=== PATIENT | male | born 1935 | race Caucasian/White ===

== ENCOUNTER → 2016-11-20 | Outpatient (CLI) | payer OTHER ==
[~2016-11-20] MED LIST: ACETAMINOPHEN325 M1 PO; LISINOPRIL10 MG PO; MOBIC7.5 MG PO; SYNTHROID100 MCG PO; ZESTRIL5 MG PO
== END ==
LOC: RAD 02:23
DX: M25.551 Pain in right hip (principal); I10 Essential (primary) hypertension

== ENCOUNTER → 2017-12-07 | Outpatient (CLI) | payer OTHER | LOC: RAD 08:38 | DX: M47.896 Other spondylosis, lumbar region (principal); M48.061 Spinal stenosis, lumbar region without neurogenic claudication; G89.29 Other chronic pain; M17.0 Bilateral primary osteoarthritis of knee; I10 Essential (primary) hypertension ==

== ENCOUNTER → 2018-02-04 | Outpatient (CLI) | payer OTHER ==
--- NOTE | ~2018-02-04 | 2DMMODE ---
[facility] [place] [address] 2 D/M-MODE ECHOCARDIOGRAM Name: MARNIE DIA Room #: REG [facility]#: [id number] Admission: 02/04/18 Attend Phys: Marnie Kaye Discharge: Date of : 31 Date of Service: 02/04/18 1132 Report #: [id number] THIS REPORT FOR: //name// APPROVED REPORT Study performed: 02/04/2018 10:50:52 EXAM: Comprehensive 2D, Doppler, and color-flow Echocardiogram Patient Location: Out-Patient Status: routine BSA: 1.69 HR: 60 bpm BP: 159/86 mmHg Rhythm: Pacemaker Other Information Study Quality: Adequate Indications Pacemaker 2D Dimensions RVDd: 28.72 mm LVEF(%): 55.05 (>50%) IVSd: 11.00 (7-11mm) LVOT Diam: 20.46 (18-24mm) LVDd: 50.33 mm PWd: 11.00 (7-11mm) Ascending Ao: 36.11 (22-36mm) LVDs: 35.87 (25-40mm) Aortic Root: 38.04 mm Mccann's LVEF: 55.05 % Volumes Left Atrial Volume (Systole) Single Plane 4CH: 31.24 mL Single Plane 2CH: 37.86 mL LA ESV Index: 22.00 mL/m2 Aortic Valve AoV Peak Armando.: 1.14 m/s AO Peak Gr.: 5.19 mmHg LVOT Max P.63 mmHg LVOT Max V: 0.81 m/s BHAVESH Vmax: 2.34 cm2 Mitral Valve E/A Ratio: 0.6 MV Decel. Time: 286.79 ms [facility] [employer] [address] [place] [address] 2 D/M-MODE ECHOCARDIOGRAM Name: MARNIE DIA Room #: [facility]#: [id number] Admission: 02/04/18 Attend Phys: [facility] Discharge: Date of : 31 Date of Service: 02/04/18 1132 Report #: [id number] MV E Max Armando.: 0.56 m/s MV A Armando.: 0.88 m/s MV PHT: 83.17 ms IVRT: 101.50 ms Pulmonary Valve PV Peak Armando.: 1.08 m/s PV Peak Gr.: 4.67 mmHg Pulmonary Vein P Vein S: 0.32 m/s P Vein A: 0.25 m/s P Vein D: 0.39 m/s P Vein S/D Ratio: 0.82 Tricuspid Valve TR Peak Armando.: 2.47 m/s TR Peak Gr.: 24.31 mmHg Left Ventricle The left ventricle is normal size. There is normal left ventricular wall thickness. Left ventricular systolic function is low normal. Discordant septal motion probably from RV pacing LVEF is 50%. Mild diastolic dysfunction is present (impaired relaxation pattern). Right Ventricle The right ventricle is normal size. The right ventricular systolic function is normal. Pacemaker lead is present in the right ventricle. Atria The left atrium size is normal. The right atrium size is normal. Aortic Valve The aortic valve is normal in structure. Trace aortic regurgitation. There is no aortic valvular stenosis. Mitral Valve The mitral valve is normal in structure. Mild mitral regurgitation. Tricuspid Valve The tricuspid valve is normal in structure. Mild to moderate tricuspid regurgitation. Estimated PAP is 25mmHg plus the right atrial pressure. Pulmonic Valve [facility] [address] [place] [address] 2 D/M-MODE ECHOCARDIOGRAM Name: MARNIE DIA Room #: REG [facility]#: [id number] Admission: 02/04/18 Attend Phys: [facility] Discharge: Date of : 31 Date of Service: 02/04/18 1132 Report #: [id number] The pulmonary valve is normal in structure. Trace pulmonic regurgitation. Great Vessels Aortic root is borderline dilated. The ascending aorta is normal in size. IVC is not well visualized. Pericardium There is no pericardial effusion. <Conclusion> Technically limited study Left ventricular systolic function is low normal. Discordant septal motion probably from RV pacing LVEF is 50%. Mild diastolic dysfunction The aortic valve is normal in structure. Trace aortic regurgitation, no stenosis. The mitral valve is normal in structure. Mild mitral regurgitation. Mild to moderate tricuspid regurgitation. Estimated pulmonary artery pressure of 25mmHg plus the right atrial pressure. There is no pericardial effusion. <ELECTRONICALLY SIGNED> By: Jono Solano MD, FACC 02/04/18 1132 113 113 Jono Solano MD, FACC /INF
== END ==
LOC: CV 07:13
DX: I08.1 Rheumatic disorders of both mitral and tricuspid valves (principal); I10 Essential (primary) hypertension; Z95.0 Presence of cardiac pacemaker

== ENCOUNTER → 2018-02-05 | Outpatient (CLI) | payer OTHER | LOC: ULTRA 06:19 | DX: N28.1 Cyst of kidney, acquired (principal); I70.90 Unspecified atherosclerosis; Z90.49 Acquired absence of other specified parts of digestive tract ==

== ENCOUNTER → 2019-10-11 | Outpatient (CLI) | payer OTHER ==
[~2019-10-11] VITALS: Ht 160 cm; Wt 63.5 kg
[~2019-10-11] MED LIST changes: +FUROSEMIDE 20 M20 MG PO; +NORVASC 2.5 MG2.5 M1 PO; +POTASSIUM20 PO
[2019-10-11 09:37] VITALS: BP 137/77
--- NOTE | 2019-10-11 09:58 | NUR ---
Pain Clinic Assessment: 1. History of Osteoarthritis: KNEES History of Rheumatoid Arthritis: 2. Height: 5 ft. 3 in. 160.0 cm. Weight: 140.0 lb. oz. 63.504 kg. Patient's BMI: 24.8 3. Vital Signs: BP: 137/77 Pulse: 70 Resp: 14 Temp: 02 Sat: 95 ECG Mon: 4. Pain Intensity: 7 5. Fall Risk: Dizziness: N Needs help standing or walking: Y Fallen in the last 3 months: N Fall risk comments: 6. Patient on Blood Thinner: None 7. History of Hypertension: Y 8. Opioid Therapy greater than 6 weeks: N Opiate Contract Signed: 9. Risk Assessment Tool Provided: 0-LOW RISK 10. Functional Assessment Tool: 11. Recreational Drug Use: Never Drug Type: Tobacco Use: Never Smoker Tobacco Type: Amount or Packs/day: How Many Years: Alcohol Use: No Frequency: Quant:
--- NOTE | 2019-10-18 07:45 | HPC ---
[facility] [place] [address] PAIN MANAGEMENT CONSULTATION Name: DIAYANET Room #: REG [facility]#: [id number] Admission: 10/11/19 Attend Phys: Sai Watt DO Discharge: Date of : 31 Report #: [id number] THIS REPORT FOR: cc: Reggie Anne MD, Mark A. MD Johnson, James E. DO ~ THIS REPORT FOR: //name// DATE OF SERVICE: 10/11/2019 CHIEF COMPLAINT: Low back pain, bilateral lower extremity pain. HISTORY OF PRESENT ILLNESS: As you know, the patient is an 84-year-old male referred to our service for chronic low back pain and bilateral lower extremity pain with paresthesias. The patient was seen by Neurosurgery with Dr. Pawan Hines who advised the patient for trial conservative treatments initially for chronic lumbar radiculopathy. He underwent CT of the lumbar spine with myelogram, which shows changes significant enough that surgical options may be necessary. He was referred to our clinic to trial a lumbar epidural injection initially to determine if his symptoms would be amenable. The patient indicates today pain is continuous, constant and transient. He describes the pain as burning, cramping, sharp, tender, numbness and tingling. Places current pain score at 7/10, daily average at 8/10, worst pain has been is 8/10. The patient states the pain is present "all of the time." He indicates pain is only improved with sleeping. He has been referred to our service by his neurosurgeon, Dr. Pawan Hines and by his primary care physician, Dr. Anne to undergo lumbar epidural injection under fluoroscopic guidance to address suspected lumbar radiculopathy. PAST MEDICAL HISTORY: 1. Acquired spondylolisthesis, lumbar spine. 2. Osteoarthritis. 3. Coronary artery disease, status post permanent pacemaker. 4. Cervical spondylosis. 5. Thyroid disease. 6. Degenerative disk disease. 7. History of nephrolithiasis. 8. Osteoarthritis. PAST SURGICAL HISTORY: 1. Cholecystectomy. 2. Implantation of a permanent pacemaker. [facility] [address] [place] [address] PAIN MANAGEMENT CONSULTATION Name: MARNIE DIA Room #: REG [facility]#: [id number] Admission: 10/11/19 Attend Phys: Sai Watt DO Discharge: Date of : 31 Report #: [id number] SOCIAL HISTORY: The patient denies tobacco, alcohol or IV illicit drug use. He is retired, retired about 30 years ago. He is not receiving workmen's compensation or is trying to obtain discrete benefits. He is not in litigation in regards to pain. He is accompanied by his present in room today who is providing much of the history due to a language barrier as the patient is a Latvian-speaking male. REVIEW OF SYSTEMS: Positive for decrease in appetite, wearing corrective eyewear, frequent urination, nocturia, numbness and tingling sensations, low back pain, bilateral lower extremity pain, thyroid disease, shortness of breath walking or lying flat. All other review of systems negative per 12-point review of systems, and those listed in history of present illness. Pain impact score 14/70 indicating mild interference of daily activities secondary to pain. ALLERGIES: No known drug allergies. CURRENT MEDICATIONS: Amlodipine 5 mg once a day, hydrochlorothiazide 25 mg per day, Synthroid 88 mcg per day. IMAGING: CT myelogram lumbar spine shows grade 1 spondylolisthesis L5-S1 with bilateral pars defects. Prominent anterior extradural impression on thecal sac noted at L2-L3, L3-L4 and L4-L5, most severe at the L2-L3 level. There is moderate blunting of the nerve roots bilaterally at the L5-S1 level. PQRS: The patient has known arthritic changes of the lumbar spine, bilateral knees. No rheumatoid arthritis. He places current pain score 7/10. He is a fall risk, but has not had a fall in last 3 months. He is not on blood thinners, but is treated for hypertension. He is not on chronic opioids and has a low opiate addiction potential. Pain impact score as indicated above. PHYSICAL EXAMINATION: VITAL SIGNS: Blood pressure 137/77, pulse 70, respiratory rate 14 and unlabored. The patient is 95% on room air. Height 5 feet 3 inches tall, weight 140 pounds, BMI calculated 24.8. GENERAL: Well-developed, well-nourished, well-hydrated, 84-year-old male appearing his stated age. He is in no acute distress, awake, alert and oriented x 3, pain score is rated at 7/10. HEENT: Normocephalic, atraumatic. Pupils equal, round, reactive to light. Extraocular muscles are intact. Sclerae nonicteric without injection. NEUROLOGIC: Cranial nerves 2-12 grossly intact. Speech is fluent for patient. LUNGS: Clear, no wheeze, rhonchi or rales. CARDIOVASCULAR: Regular. No appreciable gallop, no rub. ABDOMEN: Soft, nontender, nondistended, normoactive bowel sounds. EXTREMITIES: Show no clubbing, no cyanosis, no edema. [facility] [address] [place] [address] PAIN MANAGEMENT CONSULTATION Name: MARNIE DIA Room #: REG [facility]#: [id number] Admission: 10/11/19 Attend Phys: Sai Watt DO Discharge: Date of : 31 Report #: [id number] MUSCULOSKELETAL: Lower extremity strength is symmetrical, but deconditioned bilaterally. He requires assistance to rise from seated position. He is using a cane for ambulation today. Stance is somewhat forward flexed lumbar spine. Loss of lordotic curvature. Seated straight leg raising is negative. Supine straight leg raising is negative. Roseann's test is negative. Modified Gaenslen's positive for axial low back pain. Ankle clonus is negative. Babinski is negative. ASSESSMENT: 1. Symptomatic lumbar radiculopathy. 2. Lumbosacral spondylosis with radiculopathy. 3. Displacement of lumbar intervertebral disk with radiculopathy. 4. Chronic intractable pain. PLAN: 1. Based on today's physical exam and history the patient has provided, the description the patient uses in regards to pain, likely source of the patient's symptoms is a contribution of lumbar radiculopathy. The patient was sent to our clinic by his neurosurgeon and primary care physician to undergo a lumbar epidural injection under fluoroscopic guidance to determine if his symptoms would be amenable. The patient and I discussed other treatment options that are available for lumbar radiculopathy following was discussed with the patient today. We discussed physical therapy, stretching exercises and core strengthening techniques to help with ongoing pain and to improve ambulation. We discussed the possibility of medication management changes, adding neuropathic pain medications and current regimen. We discussed epidural injections for which the patient was referred to our clinic and ultimately surgical options. After reviewing the risks and benefits of all the proposed treatment options, the patient chose to undergo a lumbar epidural injection under fluoroscopic guidance. 2. The patient was advised risks and benefits of a lumbar epidural injection. These risks include but are not necessarily limited to bleeding, bruising, infection, worsening pain, no relief of pain, also risk of temporary or permanent muscle weakness, temporary or permanent nerve damage, possible paralysis and . The patient states understood and wished to proceed. 3. No medication changes made at today's visit. The patient will continue current medical therapy as prior prescribed. 4. We will see the patient back in followup visit on an as needed basis for possible next in the series of lumbar epidural injections. 5. We wish to thank the referring physician, Dr. Reggie Anne and Dr. Pawan Hines for the opportunity to see this patient in consultation. We will keep you apprised of his response to treatment as we address his suspected lumbar radiculopathy. Again, we wish to thank you for the opportunity to see [place] [address] PAIN MANAGEMENT CONSULTATION Name: MARNIE DIA Room #: REG [facility]#: [id number] Admission: 10/11/19 Attend Phys: Sai Watt DO Discharge: Date of : 31 Report #: [id number] PROCEDURE NOTE DESCRIPTION OF PROCEDURE: Lumbar epidural steroid injection under fluoroscopic guidance. This is the first procedure of the first series that the patient is undergoing. After obtaining written consent, the patient was taken back to the fluoroscopy suite, placed in a prone position with pillow under the abdomen to decrease lumbar lordosis. The skin overlying the lumbosacral area was then prepped and draped in aseptic fashion. The lumbar vertebral interspace was then identified by AP fluoroscopy. The skin and subcutaneous tissue overlying the target site of injection was anesthetized with 3 mL 1% lidocaine. A 20 gauge 3-1/2 inch Tuohy needle was then advanced under fluoroscopic guidance towards the epidural space using a parasagittal approach. The epidural space was identified using loss of resistance to air technique. After negative aspiration for heme or cerebrospinal fluid, a total of 1 mL of Omnipaque was injected. A lumbar epidurogram was confirmed using both AP and lateral fluoroscopy. After negative aspiration for heme or cerebrospinal fluid, 5 mL of a solution containing 2 mL 40 mg per mL, 80 mg total triamcinolone along with 3 mL of lidocaine 1% was injected in increments. Contrast spread was noted posterior epidural space. The needle was then retracted approximately half way and needle tract flushed with 1 mL of 1% lidocaine. Needle was then removed. There were no apparent sensory or motor deficits in the lower extremity following the procedure. A sterile bandage was placed over the injection site. The heart rate, pulse, oximetry and blood pressure were continuously monitored after the procedure. There were no apparent complications. The patient tolerated the procedure well and was carefully escorted to the recovery room in stable condition. There were no apparent complications. After meeting discharge criteria, the patient was then discharged home. <ELECTRONICALLY SIGNED> By: Sai Watt DO 10/18/19 0745 [id number] Sai Watt DO /nt
== END | disposition home or self-care (01) ==
LOC: PAIN 06:49
DX: M51.16 Intervertebral disc disorders with radiculopathy, lumbar region (principal); M47.27 Other spondylosis with radiculopathy, lumbosacral region; M43.16 Spondylolisthesis, lumbar region; G89.29 Other chronic pain; M19.90 Unspecified osteoarthritis, unspecified site; I25.10 Atherosclerotic heart disease of native coronary artery without angina pectoris; E07.9 Disorder of thyroid, unspecified; Z98.890 Other specified postprocedural states; Z79.899 Other long term (current) drug therapy; Z95.0 Presence of cardiac pacemaker; Z90.49 Acquired absence of other specified parts of digestive tract

== ENCOUNTER → 2020-02-09 | Outpatient (CLI) | payer OTHER | LOC: SJCVC 12:56 | PROVIDERS: ATTEND Internal Medicine Cardiovascular Disease | DX: R94.31 Abnormal electrocardiogram [ECG] [EKG] (principal); I44.2 Atrioventricular block, complete; R00.1 Bradycardia, unspecified; Z95.0 Presence of cardiac pacemaker ==

== ENCOUNTER 2020-09-25 07:32 | Emergency (ER) | payer OTHER ==
[~2020-09-25] VITALS: Ht 157.5 cm; Wt 64.4 kg
[2020-09-25] MEDS ORDERED: KEFLEX250 MG PO (09:19)
[2020-09-25 09:44] VITALS: BP 130/74
== END 2020-09-25 09:47 | disposition home or self-care (01) ==
LOC: ER 07:32
DX: T81.30XA Disruption of wound, unspecified, initial encounter (principal); Z95.0 Presence of cardiac pacemaker; Z79.899 Other long term (current) drug therapy

== ENCOUNTER → 2021-02-12 | Outpatient (CLI) | payer OTHER ==
[~2021-02-12] MED LIST changes: +KEFLEX250 MG PO
== END ==
LOC: SJCVCIMAG 08:16
PROVIDERS: ATTEND Internal Medicine Cardiovascular Disease
DX: I35.1 Nonrheumatic aortic (valve) insufficiency (principal); R94.31 Abnormal electrocardiogram [ECG] [EKG]; I11.9 Hypertensive heart disease without heart failure; I44.0 Atrioventricular block, first degree; I44.7 Left bundle-branch block, unspecified; I44.2 Atrioventricular block, complete; R00.1 Bradycardia, unspecified; E03.9 Hypothyroidism, unspecified; I45.10 Unspecified right bundle-branch block; Z95.0 Presence of cardiac pacemaker; Z90.49 Acquired absence of other specified parts of digestive tract; Z79.899 Other long term (current) drug therapy